=== PATIENT | male | born 2000 | race Caucasian/White ===

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

== ENCOUNTER 2020-02-15 01:15 | Emergency (ER) | payer OTHER, SELFPAY | END 2020-02-15 01:45 | LOC: NAV ERS 01:15 | DX: Z02.89 Encounter for other administrative examinations (principal); F17.290 Nicotine dependence, other tobacco product, uncomplicated | CPT/HCPCS: 99283 ==

== ENCOUNTER 2021-03-30 13:15 | Emergency (ER) | payer SELFPAY ==
[2021-03-31 01:36] LABS: SARS-CoV-2 PCR by NAA Not Detected (NotDetected)
== END 2021-03-30 14:00 | disposition home or self-care (01) ==
LOC: NAV ERS 13:15
DX: J06.9 Acute upper respiratory infection, unspecified (principal); R50.9 Fever, unspecified; Z20.822 Contact with and (suspected) exposure to COVID-19; I49.3 Ventricular premature depolarization; F17.290 Nicotine dependence, other tobacco product, uncomplicated
CPT/HCPCS: 99283; U0003; U0005